=== PATIENT | female | born 1960 ===

== ENCOUNTER 2024-02-14 14:42 | Emergency (ER) | payer OTHER, SELFPAY ==
--- NOTE | ~2024-02-14 | CT_ITS ---
EXAMINATION: CT CERVICAL SPINE WITHOUT CONTRAST CLINICAL INFORMATION: Pain after falling COMPARISON: None available. TECHNIQUE: Thin section axial imaging with sagittal and coronal reformats. This CT examination was performed using dose optimization techniques as appropriate, variously including the following: *Automated exposure control *Adjustment of mA and/or kV according to patient size (this includes techniques or standardized protocols for targeted exams where dose is matched to indication/reason for exam; i.e. extremities or head) *Use of iterative reconstruction technique DLP: 414 mGy-cm FINDINGS: Postsurgical changes throughout the cervical spine with areas of fusion and ankylosis. No fracture or destructive process or mass effect on the spinal canal. Alignment is normal. Prevertebral soft tissues normal. Dystrophic calcification within the nuchal ligament is noted. CT/CT cervical spine wo IV con IMPRESSION: Postsurgical change noted. No acute findings. Fleischner guidelines were followed. Electronically signed by: Keny Razo MD 02/14/2024 04:35 PM [facility]
--- NOTE | ~2024-02-14 | CT_ITS ---
EXAMINATION: CT HEAD WITHOUT CONTRAST CLINICAL INFORMATION: Fall. Pain COMPARISON: None available. TECHNIQUE: Contiguous axial imaging was performed from the skull base to vertex without intravenous administration of contrast. This CT examination was performed using dose optimization techniques as appropriate, variously including the following: *Automated exposure control *Adjustment of mA and/or kV according to patient size (this includes techniques or standardized protocols for targeted exams where dose is matched to indication/reason for exam; i.e. extremities or head) *Use of iterative reconstruction technique DLP: 854 mGy-cm FINDINGS: No intra or extra-axial fluid collection, hemorrhage, mass, or mass effect. Calvarium is intact. CT/CT head/brain wo IV con IMPRESSION: No acute intracranial pathology. Electronically signed by: Keny Razo MD 02/14/2024 04:32 PM [facility]
[2024-02-14 14:52] VITALS: BP 145/91; BP 146/96; PULSE 100; PULSE 94; RESP 16; TEMP 36.5; O2SAT 100; O2SAT 96; BMI 25.8
--- NOTE | 2024-02-14 15:10 | PC.NURSE ---
pt to radiology
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
--- NOTE | 2024-02-14 17:00 | PC.NURSE ---
pt a&ox3, pt awaiting radiology results, denies pain/discomfort, call irwin within reach, will continue to monitor
[2024-02-14 18:08] VITALS: BP 141/88; PULSE 93; RESP 16; TEMP 36.7; O2SAT 96
[2024-02-14 18:23] VITALS: BP 141/88; PULSE 93; RESP 16; TEMP 36.7; O2SAT 96
== END 2024-02-14 18:24 | disposition home or self-care (01) ==
PROVIDERS: Emergency Provider Emergency Medicine; PCP Internal Medicine
DX: Z04.1 Encounter for examination and observation following transport accident (principal); M54.2 Cervicalgia
CPT/HCPCS: 70450; 72125; 99283; 99284